=== PATIENT | male | born 1985 | race Caucasian/White ===

== ENCOUNTER 2023-09-19 17:55 | Emergency (ER) | payer SELFPAY ==
[~2023-09-19] VITALS: Ht 172.7 cm; Wt 117.5 kg
[2023-09-19 18:26] VITALS: BP 144/95; PULSE 88; RESP 18; TEMP 98; O2SAT 98
[2023-09-19] MEDS ORDERED: cefTRIAXone 250 MG in LIDOCAINE MPF 1% 0.9 ML IM ONE (20:55)
[2023-09-19] MEDS ORDERED: cefTRIAXone 250 MG VIAL ONE (21:15)
[2023-09-19] MEDS ORDERED: LIDOCAINE MPF 1% 5 ML ONE (21:15)
== END 2023-09-19 21:39 | disposition home or self-care (01) ==
LOC: MED 17:55
DX: Z20.811 Contact with and (suspected) exposure to meningococcus (principal); Z20.6 Contact with and (suspected) exposure to human immunodeficiency virus [HIV]
CPT/HCPCS: 96372; 99283; J0696; J2001